=== PATIENT | female | born 1995 ===

== ENCOUNTER 2016-10-23 01:15 | Emergency (ER) | payer SELFPAY ==
[2016-10-23 01:31] VITALS: RESP 16
[2016-10-23] MEDS ORDERED: Clindamycin 600 MG in Sodium Chloride 0.9% 100 ML IVPB STA (02:14)
--- NOTE | 2016-10-23 02:27 | ED PDOC ---
HPI: Skin/Bite Injury Time Seen by Provider: 10/23/16 01:25 Chief Complaint (Nursing): Bite Chief Complaint (Provider): abscess History Per: Patient History/Exam Limitations: no limitations Onset/Duration Of Symptoms: Days (3) Current Symptoms Are (Timing): Still Present Location Of Injury: Left: Buttock Quality Of Symptoms: Painful Additional History Per: Patient Additional Complaint(s): 21 y/o female presents with painful bump one left buttock x 3 days. Patient initially thought it was a bite, as it started as a small red bump; patient states she tried to pop it then noted area to become more swollen and painful and "hard". Denies fever, drainage from site. Past Medical History Reviewed: Historical Data, Nursing Documentation, Vital Signs Vital Signs: Last Vital Signs Temp 98.7 F 10/23/16 01:29 Pulse 99 H 10/23/16 01:29 Resp 16 10/23/16 01:29 BP 120/79 10/23/16 01:29 Pulse Ox 100 10/23/16 03:21 - Medical History PMH: No Chronic Diseases - Surgical History Surgical History: No Surg Hx - Family History Family History: States: Unknown Family Hx - Home Medications Home Medications: Ambulatory Orders Medication Instructions Recorded Clindamycin [Cleocin] 300 mg PO QID #40 cap 10/23/16 traMADol [Ultram] 50 mg PO BID PRN #10 tab 10/23/16 - Allergies Allergies/Adverse Reactions: Allergies Allergy/AdvReac Type Severity Reaction Status Date / Time No Known Allergies Allergy Verified 10/23/16 01:31 Review of Systems ROS Statement: Except As Marked, All Systems Reviewed And Found Negative Skin: Positive for: Lesions (below left buttock) Physical Exam - Reviewed Nursing Documentation Reviewed: Yes Vital Signs Reviewed: Yes - Physical Exam Appears: Positive for: Well, Non-toxic, No Acute Distress Skin: Positive for: Normal Color, Rash (2x2cm open lesion/ulceration overlying nonfluctuant base with moderate surrounding erythema. Tender to palpate. No active drainage, no necrosis. ) Cardiovascular/Chest: Positive for: Regular Rate, Rhythm Respiratory: Positive for: Normal Breath Sounds Back: Positive for: Normal Inspection Extremity: Positive for: Normal ROM Neurologic/Psych: Positive for: Alert, Oriented - Laboratory Results Result Diagrams: 10/23/16 02:29 10/23/16 02:29 - ECG O2 Sat by Pulse Oximetry: 100 - Progress ED Course And Treament: labs, wound culture, IV clindamycin, IV toradol Patient educated on findings, discharged with rx Clindamycin, Tramadol. Patient educated on danger of narcotic use and potential risk of abuse/overdose/ dependance. Advised to use as needed for severe pain only. Follow up in 48 hours for re-eval. Warm compresses. Return to ED sooner for fever, increased redness, or other concerning symptoms. Disposition - Clinical Impression Clinical Impression: Cellulitis, Boil - Patient ED Disposition Is Patient to be Admitted: No Counseled Patient/Family Regarding: Studies Performed, Diagnosis, Need For Followup - Disposition Referrals: [facility] [Outside] Disposition: Routine/Home Disposition Time: 03:59 Condition: STABLE Additional Instructions: Take antibiotic as directed. Take Ibuprofen/Advil/Motrin (3 tablets every 6 hours) as needed for moderate pain. Take Tramadol as directed, as needed for severe pain. Warm compresses 3-5 times daily. Follow up in 48 hours for re-eval. Return to ED sooner for fever, increased pain/redness or other concerning symptoms. Prescriptions: Clindamycin [Cleocin] 300 mg PO QID #40 cap traMADol [Ultram] 50 mg PO BID PRN #10 tab PRN Reason: Pain, Severe (8-10) Instructions: Cellulitis (ED), Furunculosis and Carbunculosis (ED)
[2016-10-23 02:34] LABS: BASO # 0.1 K/uL (0.0-0.2); BASO % 0.5 % (0.0-2.0); EOS # 0.2 K/uL (0.0-0.7); EOS % 1.1 % (0.0-4.0); HEMATOCRIT 37.2 % (34.0-47.0); LYMPH # 1.7 K/uL (1.0-4.3); LYMPH % 11.3 % (20.0-40.0); MEAN CORPUSCULAR HEMOGLOBIN 31.5 pg (27.0-31.0); MEAN CORPUSCULAR HGB CONC 33.1 g/dL (33.0-37.0); MEAN PLATELET VOLUME 8.4 fl (7.2-11.7); MONO # 1.4 K/uL (0.0-0.8); MONO % 9.1 % (0.0-10.0); NEUT # 11.8 K/uL (1.8-7.0); RED CELL DISTRIBUTION WIDTH 14.1 % (11.5-14.5); WHITE BLOOD COUNT 15.1 K/uL (4.8-10.8)
[2016-10-23 02:37] LABS: CHLORIDE 106 mmol/L (98-107); SODIUM 141 mmol/l (132-148)
[2016-10-23 02:38] LABS: POTASSIUM 3.9 MMOL/L (3.6-5.0)
[2016-10-23 02:39] LABS: GFR AFRICAN-AMERICAN > 60
[2016-10-23 02:40] LABS: ALB/GLOB RATIO 1.1 (1.0-2.1); ALKALINE PHOSPHATASE 88 U/L (38-126); AST/SGOT 47 U/L (14-36); BILIRUBIN,TOTAL 0.7 mg/dl (0.2-1.3); BLOOD UREA NITROGEN 16 mg/dl (7-17); CARBON DIOXIDE 26 mmol/L (22-30); GLUCOSE,RANDOM 93 mg/dL (65-105); TOTAL PROTEIN 7.3 G/DL (6.3-8.2)
[2016-10-23 02:41] LABS: ALT/SGPT 67 U/L (9-52); CALCIUM 8.9 mg/dL (8.4-10.2)
[2016-10-23 04:55] VITALS: BP 125/80; PULSE 75; TEMP 97.9; O2SAT 99
== END 2016-10-23 04:55 | disposition home or self-care (01) ==
LOC: H.ER 01:15
DX: L03.317 Cellulitis of buttock (principal)
CPT/HCPCS: 80053; 81025; 83605; 85025; 87040; 87070; 96365; 99283; J1885

== ENCOUNTER 2016-10-27 00:29 | Emergency (ER) | payer SELFPAY ==
[2016-10-27 00:42] VITALS: BP 104/67; PULSE 71; RESP 16; TEMP 98; O2SAT 99
--- NOTE | 2016-10-27 01:01 | ED PDOC ---
HPI: Wound Care - HPI Time Seen by Provider: 10/27/16 00:42 Chief Complaint (Nursing): Wound Check Chief Complaint (Provider): wound check History Per: Patient Additional Complaint(s): 21yo F in ED for eval for re-eval;of abscess to left buttock -was seen in ED 48hrs ago had elevated wBC and was given IV cleocin and d/.c on clindamycin advised to use warm compress. pt admits she has not been doing warm compresses, but states abscess has improved. denies fever chills or nausea/vomiting. admits to drainage from wound. Past Medical History Reviewed: Historical Data, Nursing Documentation, Vital Signs Vital Signs: Last Vital Signs Temp 98 F 10/27/16 00:40 Pulse 71 10/27/16 00:40 Resp 16 10/27/16 00:40 BP 104/67 10/27/16 00:40 Pulse Ox 99 10/27/16 00:40 - Medical History PMH: No Chronic Diseases - Family History Family History: States: Unknown Family Hx - Home Medications Home Medications: Ambulatory Orders Medication Instructions Recorded Clindamycin [Cleocin] 300 mg PO QID #40 cap 10/23/16 traMADol [Ultram] 50 mg PO BID PRN #10 tab 10/23/16 Cephalexin [cephalexin] 500 mg PO BID #20 cap 10/27/16 - Allergies Allergies/Adverse Reactions: Allergies Allergy/AdvReac Type Severity Reaction Status Date / Time No Known Allergies Allergy Verified 10/23/16 01:31 Review of Systems ROS Statement: Except As Marked, All Systems Reviewed And Found Negative Skin: Positive for: Other (wound buttock) Physical Exam - Reviewed Nursing Documentation Reviewed: Yes Vital Signs Reviewed: Yes - Physical Exam Appears: Positive for: Well, Non-toxic, No Acute Distress Skin: Positive for: Normal Color, Warm, DRY Cardiovascular/Chest: Positive for: Regular Rate, Rhythm Respiratory: Positive for: CNT, Normal Breath Sounds Extremity: Positive for: Other (buttock: left noted healing ulcer noted #1: round 2cm and #2 1cm round no drainage from both induration noted streaking noted mild warmth noted. no swelling noted. ) Neurologic/Psych: Positive for: Alert, Oriented - ECG O2 Sat by Pulse Oximetry: 99 Medical Decision Making Medical Decision Making: pt strongly advised to use warm compress, will be Rx keflex in addition to cleocin. pt advised to f.u with pmd stable VS and well appearing. Disposition - Clinical Impression Clinical Impression: Encounter for wound re-check - Patient ED Disposition Is Patient to be Admitted: No Counseled Patient/Family Regarding: Diagnosis, Need For Followup, Rx Given - Disposition Referrals: FAMILY PROVIDER,NO [Primary Care Provider] - Disposition: Routine/Home Disposition Time: 01:04 Condition: STABLE Additional Instructions: do make sure you take antibiotics and use warm compress Prescriptions: Cephalexin [cephalexin] 500 mg PO BID #20 cap Instructions: Cellulitis (ED)
== END 2016-10-27 01:41 | disposition home or self-care (01) ==
LOC: H.ER 00:29
DX: L03.90 Cellulitis, unspecified (principal)

== ENCOUNTER 2017-02-06 23:28 | Emergency (ER) | payer SELFPAY ==
[2017-02-06 23:56] VITALS: BP 102/41; PULSE 59; RESP 16; TEMP 98.5; O2SAT 100
[2017-02-07] MEDS ORDERED: Lidocaine/Epi 1% 1:100000 20 ML IJ ONE (00:07)
[2017-02-07] MEDS ORDERED: Lidocaine 1% Inj (20ml) ONE (00:11)
--- NOTE | 2017-02-07 00:29 | ED PDOC ---
HPI: Skin/Bite Injury Time Seen by Provider: 02/06/17 23:56 Chief Complaint (Nursing): Abnormal Skin Integrity Chief Complaint (Provider): Abscess on buttocks History Per: Patient History/Exam Limitations: no limitations Onset/Duration Of Symptoms: Days (x3) Current Symptoms Are (Timing): Still Present Location Of Injury: Left: Buttock Additional Complaint(s): Liya Silver is a 21 year old female, with no past medical history, who presents to the emergency department complaining of an abscess on left buttock onset since 3 days. Patient reports she has had similar symptoms in the past. She denies any fever, chills, and nausea. No further medical complaints. PMD: None provided Past Medical History Reviewed: Historical Data, Nursing Documentation, Vital Signs Vital Signs: Last Vital Signs Temp 98.5 F 02/06/17 23:52 Pulse 59 L 02/06/17 23:52 Resp 16 02/06/17 23:52 BP 102/41 L 02/06/17 23:52 Pulse Ox 100 02/07/17 01:36 - Medical History PMH: No Chronic Diseases - Family History Family History: States: Unknown Family Hx - Social History Current smoker - smoking cessation education provided: No Alcohol: Occasional Drugs: Denies - Home Medications Home Medications: Ambulatory Orders Medication Instructions Recorded Clindamycin [Cleocin] 300 mg PO QID #40 cap 10/23/16 traMADol [Ultram] 50 mg PO BID PRN #10 tab 10/23/16 Cephalexin [cephalexin] 500 mg PO BID #20 cap 10/27/16 Cephalexin [cephalexin] 500 mg PO QID 7 Days 02/07/17 - Allergies Allergies/Adverse Reactions: Allergies Allergy/AdvReac Type Severity Reaction Status Date / Time No Known Allergies Allergy Verified 10/23/16 01:31 Review of Systems ROS Statement: Except As Marked, All Systems Reviewed And Found Negative Constitutional: Negative for: Fever, Chills Gastrointestinal: Negative for: Nausea Skin: Positive for: Other (abscess on left buttock) Physical Exam - Reviewed Nursing Documentation Reviewed: Yes Vital Signs Reviewed: Yes - Physical Exam Appears: Positive for: Well, Non-toxic, No Acute Distress Head Exam: Positive for: ATRAUMATIC, NORMAL INSPECTION, NORMOCEPHALIC Skin: Positive for: Normal Color, Warm, Dry Eye Exam: Positive for: EOMI, Normal appearance, PERRL ENT: Positive for: Normal ENT Inspection Neck: Positive for: Normal, Painless ROM, Supple Cardiovascular/Chest: Positive for: Regular Rate, Rhythm Respiratory: Positive for: Normal Breath Sounds. Negative for: Respiratory Distress Gastrointestinal/Abdominal: Positive for: Normal Exam, Bowel Sounds, Soft Rectal: Positive for: Other (2x2 indurated abscess) Extremity: Positive for: Normal ROM Neurologic/Psych: Positive for: Alert, Oriented - ECG O2 Sat by Pulse Oximetry: 100 (RA) Pulse Ox Interpretation: Normal Medical Decision Making Medical Decision Making: Initial Impression: Abscess Initial Plan: --Lidocaine/Epi 1% 20ml --reevaluation 01:25 Note: I&D with a 10 blade 2:05 -Patient is feeling better, is medically stable, and requires no further treatment in the ED at this time. Patient will be discharged with Rx for cephalexin. Counseling was provided and all questions were answered regarding diagnosis. There is agreement to discharge plan. Return if symptoms persist or worsen. Scribe Attestation: Documented by Matthew Curry, acting as a scribe for Yogesh Gilliland MD. Provider Scribe Attestation: All medical record entries made by the Scribe were at my direction and personally dictated by me. I have reviewed the chart and agree that the record accurately reflects my personal performance of the history, physical exam, medical decision making, and the department course for this patient. I have also personally directed, reviewed, and agree with the discharge instructions and disposition. Disposition - Clinical Impression Clinical Impression: Abscess - Disposition Referrals: [facility] [Outside] Disposition: Routine/Home Disposition Time: 02:05 Condition: STABLE Prescriptions: Cephalexin [cephalexin] 500 mg PO QID 7 Days Instructions: Abscess (ED) Forms: [facility] (Maltese)
== END 2017-02-07 02:21 | disposition home or self-care (01) ==
LOC: H.ER 23:28
DX: L02.31 Cutaneous abscess of buttock (principal)

== ENCOUNTER 2017-02-20 00:13 | Emergency (ER) | payer SELFPAY ==
[2017-02-20 00:31] VITALS: RESP 18; TEMP 98.7; O2SAT 98
[2017-02-20] MEDS ORDERED: Tmp-Smz 800 mg-160 mg DS Tab PO STA (00:42)
--- NOTE | 2017-02-20 01:13 | ED PDOC ---
HPI: Skin/Bite Injury Time Seen by Provider: 02/20/17 00:14 Chief Complaint (Nursing): Abnormal Skin Integrity Chief Complaint (Provider): Abscess History Per: Patient Additional Complaint(s): 21 yo female, no PMH, presents to ED with complaint of an abscess to her Right lower extremity x 3 days now. pt reports that yesterday it "popped." Pt notes that she had a similar abscess to her left buttock 2 weeks ago and she was here for an incision and drainage. Pt was placed on antibitoics and she reports she did not finish taking them. Past Medical History Reviewed: Nursing Documentation, Vital Signs Vital Signs: Last Vital Signs Temp 98.7 F 02/20/17 00:28 Pulse 76 02/20/17 00:56 Resp 18 02/20/17 00:56 BP 100/62 02/20/17 00:56 Pulse Ox 98 02/20/17 00:56 - Medical History PMH: No Chronic Diseases - Surgical History Surgical History: No Surg Hx - Family History Family History: States: Unknown Family Hx - Living Arrangements Living Arrangements: With Family - Social History Current smoker - smoking cessation education provided: No Alcohol: None Drugs: Denies - Home Medications Home Medications: Ambulatory Orders Medication Instructions Recorded Clindamycin [Cleocin] 300 mg PO QID #40 cap 10/23/16 traMADol [Ultram] 50 mg PO BID PRN #10 tab 10/23/16 Cephalexin [cephalexin] 500 mg PO BID #20 cap 10/27/16 Cephalexin [cephalexin] 500 mg PO QID 7 Days 02/07/17 Cephalexin [cephalexin] 500 mg PO BID #14 cap 02/20/17 Sulfamethoxazole/Trimethoprim 1 tab PO BID 5 Days 02/20/17 [Bactrim DS 800 mg-160 mg] - Allergies Allergies/Adverse Reactions: Allergies Allergy/AdvReac Type Severity Reaction Status Date / Time No Known Allergies Allergy Verified 10/23/16 01:31 Review of Systems ROS Statement: Except As Marked, All Systems Reviewed And Found Negative Skin: Positive for: Lesions Physical Exam - Reviewed Nursing Documentation Reviewed: Yes Vital Signs Reviewed: Yes - Physical Exam Appears: Positive for: Well, Non-toxic, No Acute Distress Head Exam: Positive for: ATRAUMATIC, NORMAL INSPECTION, NORMOCEPHALIC Skin: Positive for: Warm. Negative for: Normal Color ((+) 3 cm firm, tender, erythematous papule to medial aspect of calf, (+) draining purulent material) Eye Exam: Positive for: EOMI, Normal appearance, PERRL ENT: Positive for: Normal ENT Inspection Neck: Positive for: Normal, Painless ROM Cardiovascular/Chest: Positive for: Regular Rate, Rhythm Respiratory: Positive for: CNT, Normal Breath Sounds Gastrointestinal/Abdominal: Positive for: Normal Exam, Bowel Sounds, Soft Back: Positive for: Normal Inspection Extremity: Positive for: Normal ROM Neurologic/Psych: Positive for: Alert, Oriented - ECG O2 Sat by Pulse Oximetry: 98 Medical Decision Making Medical Decision Making: advised warm compresses BID Started on Bactrim and Keflex while in ED Importance of finishing medications as directed was discussed Disposition - Clinical Impression Clinical Impression: Abscess, Cellulitis - Patient ED Disposition Is Patient to be Admitted: No - Disposition Disposition: Routine/Home Disposition Time: 01:25 Condition: STABLE Prescriptions: Cephalexin [cephalexin] 500 mg PO BID #14 cap Sulfamethoxazole/Trimethoprim [Bactrim DS 800 mg-160 mg] 1 tab PO BID 5 Days Instructions: Abscess (ED) Forms: [employer] (Divehi) - POA Present On Arrival: None
[2017-02-20 01:43] VITALS: BP 100/62; PULSE 76
== END 2017-02-20 00:59 | disposition home or self-care (01) ==
LOC: H.ER 00:13
DX: L02.415 Cutaneous abscess of right lower limb (principal)

== ENCOUNTER 2017-09-05 23:19 | Emergency (ER) | payer OTHER ==
[2017-09-05 23:43] VITALS: BP 101/68; PULSE 95; RESP 16; TEMP 99.7; O2SAT 97
--- NOTE | 2017-09-06 01:37 | ED PDOC ---
HPI: CCC, URI, Sore Throat Time Seen by Provider: 09/06/17 00:06 Chief Complaint (Nursing): ENT Problem Chief Complaint (Provider): Throat pain for 3 days Onset/Duration Of Symptoms: Days Current Symptoms Are (Timing): Still Present Location Of Pain: Throat Additional Complaint(s): 22 yo female with no medical problems presents with sore throat for 3 days. Pt reports fever at home but has not taken temperature. Pt also reports taking mucinex for symptoms, last > 4 horus [employer] Past Medical History Reviewed: Historical Data, Nursing Documentation, Vital Signs Vital Signs: Last Vital Signs Temp 99.7 F H 09/05/17 23:41 Pulse 95 H 09/05/17 23:41 Resp 16 09/05/17 23:41 BP 101/68 09/05/17 23:41 Pulse Ox 97 09/06/17 01:37 - Medical History PMH: No Chronic Diseases - Surgical History Surgical History: No Surg Hx - Family History Family History: States: Unknown Family Hx - Living Arrangements Living Arrangements: With Family - Social History Current smoker - smoking cessation education provided: No - Home Medications Home Medications: Ambulatory Orders Medication Instructions Recorded Clindamycin [Cleocin] 300 mg PO QID #40 cap 10/23/16 traMADol [Ultram] 50 mg PO BID PRN #10 tab 10/23/16 Cephalexin [cephalexin] 500 mg PO BID #20 cap 10/27/16 Cephalexin [cephalexin] 500 mg PO QID 7 Days cap 02/07/17 Cephalexin [cephalexin] 500 mg PO BID #14 cap 02/20/17 Sulfamethoxazole/Trimethoprim 1 tab PO BID 5 Days tab 02/20/17 [Bactrim DS 800 mg-160 mg] - Allergies Allergies/Adverse Reactions: Allergies Allergy/AdvReac Type Severity Reaction Status Date / Time No Known Allergies Allergy Verified 09/05/17 23:41 Review of Systems ROS Statement: Except As Marked, All Systems Reviewed And Found Negative Constitutional: Negative for: Fever, Chills ENT: Positive for: Throat Pain. Negative for: Throat Swelling Cardiovascular: Negative for: Chest Pain Gastrointestinal: Negative for: Nausea, Vomiting, Abdominal Pain Physical Exam - Reviewed Nursing Documentation Reviewed: Yes Vital Signs Reviewed: Yes - Physical Exam Appears: Positive for: Well, Non-toxic, No Acute Distress Head Exam: Positive for: ATRAUMATIC, NORMAL INSPECTION, NORMOCEPHALIC Skin: Positive for: Normal Color, Warm, DRY Eye Exam: Positive for: Normal appearance ENT: Positive for: Normal ENT Inspection. Negative for: Pharynx Is Neck: Positive for: Normal, Painless ROM Cardiovascular/Chest: Positive for: Regular Rate, Rhythm Respiratory: Positive for: Normal Breath Sounds. Negative for: Accessory Muscle Use, Respiratory Distress Back: Positive for: Normal Inspection Extremity: Positive for: Normal ROM Neurologic/Psych: Positive for: Alert, Oriented - ECG O2 Sat by Pulse Oximetry: 97 Medical Decision Making Medical Decision Making: Strep (-) Disposition - Clinical Impression Clinical Impression: Viral pharyngitis - Patient ED Disposition Is Patient to be Admitted: No Counseled Patient/Family Regarding: Diagnosis, Need For Followup - Disposition Disposition: Routine/Home Disposition Time: 02:25 Condition: STABLE Instructions: Viral Pharyngitis Forms: [employer] (Indonesian)
== END 2017-09-06 02:25 | disposition home or self-care (01) ==
LOC: H.ER 23:19
DX: J02.9 Acute pharyngitis, unspecified (principal)